=== PATIENT | female | born 1980 | race African-American/Black ===

== ENCOUNTER 2020-10-31 08:57 | Emergency (ER) | payer OTHER, SELFPAY ==
--- NOTE | ~2020-10-31 | US_ITS ---
US breast RT complete DATE: 10/31/2020 09:46 INDICATION: Right breast pain. Possible breast abscess. TECHNIQUE: Real-time imaging of the complete right breast COMPARISON: No comparison views are available here. The patient reports that she had a recent mammogram and breast ultrasound examination on October 08 [address]. FINDINGS: No suspicious mass or shadowing is detected. IMPRESSION: Negative; recommend clinical correlation with prior mammogram and ultrasound report BI-RADS Category 1: Negative Reviewed, dictated and finalized at [facility]. Reviewed, dictated and finalized at [facility]. E DIRECTOR IMPRESSION: Negative; recommend clinical correlation with prior mammogram and u ltrasound report BI-RADS Category 1: Negative
[2020-10-31 09:03] VITALS: BP 123/80; PULSE 86; RESP 18; TEMP 36.2; O2SAT 100
[2020-10-31] MEDS: KETOROLAC 15 MG/ML VIAL (*BKC) IV PUSH (09:31)
[2020-10-31 09:40] LABS: Basophils Percent Auto 0.8 % (0.2-1.2); Eosinophils Absolute Auto 0.1 K/mm3 (0-0.3); Eosinophils Percent Auto 2.6 % (0-4.4); Hematocrit 36.8 % (37.0-47.0); Hemoglobin 12.4 g/dL (12.0-15.0); Immature Granulocyte Absolute 0.01 K/mm3 (0.00-0.031); Immature Granulocyte Percent A 0.2 % (0-0.5); Lymphocytes Absolute Auto 1.55 K/mm3 (0.9-3.2); Lymphocytes Percent Auto 29.2 % (18.3-44.2); Mean Corpuscular HGB Conc 33.7 g/dl (32-36); Mean Corpuscular Hemoglobin 32.5 pg (26-34); Mean Corpuscular Volume 96.3 fl (80-100); Mean Platelet Volume 9.2 fl (7.4-10.4); Monocytes Absolute Auto 0.3 K/mm3 (0.1-0.6); Monocytes Percent Auto 6.2 % (2.6-8.5); Neutrophils Absolute Auto 3.2 K/mm3 (1.3-6.7); Platelet Count Result 338 k/mm3 (150-375); Red Blood Count 3.82 M/mm3 (4.2-5.4); White Blood Count 5.3 K/mm3 (4.5-10.0)
[2020-10-31 09:47] LABS: Add Urine Microscopic? NO; Appearance Urine Clear (Clear); Bilirubin Urine Negative (Negative); Blood Urine Negative (Negative); Color Urine Yellow (Yellow); Glucose Urine UA Negative (Negative); Ketones Urine Negative (Negative); Leukocyte Esterase Ur Negative LEU/UL (Negative); Nitrate Urine Negative (Negative); Protein Urine Negative (Negative); RBC Urine 0-2 /hpf (0-2); Specific Grav Ur 1.018 (1.001-1.035); Squamous Epithelial Cell Urine Many /hpf (Few); Urobilinogen Urine Negative mg/dL (<2.0); WBC Urine 0-3 /hpf
[2020-10-31 09:52] LABS: Alanine Aminotransferase 13 U/L (4-35); Alkaline Phosphatase 66 U/L (38-126); Anion Gap 6 mmol/L (8-16); Aspartate Amino Transferase 19 U/L (14-36); Bilirubin,Total 0.5 mg/dL (0.2-1.3); Blood Urea Nitrogen 14 mg/dL (7-17); Calcium 9.1 mg/dL (8.4-10.2); Carbon Dioxide 27 mmol/L (22-30); Chloride 104 mmol/L (98-107); Estimated CRCL calculation 74 ml/min; Estimated Glomerular Filt Rate > 60; Glucose 97 mg/dL (65-105); Potassium 3.9 mmol/L (3.4-5.0); Sodium 137 mmol/L (137-145)
--- NOTE | 2020-10-31 09:55 | ED.GENADULT ---
HPI - General Adult General Chief complaint: Unspecified Stated complaint: breast abcesses Time Seen by Provider: 10/31/20 09:07 Source: patient Mode of arrival: ambulatory Limitations: no limitations History of Present Illness HPI narrative: Patient presents with chief complaint of right there is pain that she has been experiencing since August. Patient states she has been on Cipro and Bactrim without resolution of her discomfort. Patient states she has a history of inflammatory breast cancer so in October 08 her primary care had her do a mammogram and ultrasound at [facility]. Patient reports she was told that she has a an infected bill. Patient states that she is able to express yellow drainage from her breast and was told that it was staph but it has not stopped even after finishing a course of Bactrim. Patient states that she has not lactated in 19 years. Patient reports diffuse discomfort to the breast especially the inferior and lateral aspect. She denies fever, chills, nausea, vomiting. Patient states that her primary care told her that she was referred to a breast specialist, however she continues to call and has not yet been able to obtain an appointment over this past month. Patient states she really wants to have this issue addressed so she came to the emergency department. Related Data Allergies Allergy/AdvReac Type Severity Reaction Status Date / Time ciprofloxacin [From Cipro] AdvReac Rash Verified 10/31/20 09:07 Review of Systems Review of Systems: Narrative: CONSTITUTIONAL: Denies fever, chills, or sweats. EYES: Denies visual changes, redness, or discharge. ENT: Denies rhinorrhea, congestion, sore throat, or otalgia. CARDIOVASCULAR: Denies chest pain, palpitations, or edema. RESPIRATORY: Denies cough or dyspnea. GASTROINTESTINAL: Denies abdominal pain, nausea, vomiting, or diarrhea. GENITOURINARY: Denies dysuria or hematuria. SKIN: Reports breast pain and drainage denies rash or itching. MUSCULOSKELETAL: Denies back pain, joint pain, or myalgia. NEUROLOGIC: Denies headache, numbness, dizziness, or weakness. PSYCHIATRIC: Denies anxiety or depression. Exam Narrative: Exam Narrative: GENERAL: Well-appearing, well-nourished, and in no acute distress. HEAD: Normocephalic, atraumatic. EYES: PERRLA and EOMI. NECK: Supple. No adenopathy or masses. CHEST: Old scar noted to medial chest wall. there is tenderness diffusely to the inferior and lateral aspect of the breast. It is not erythematous nor is coloration abnormal. No induration or abscess palpable. Symmetrical with the left breast. Lymphadenopathy not appreciated in the right axilla. Yellow serous like fluid expressible from the nipple. Clear to auscultation. No respiratory distress. No wheezes rales or rhonchi. HEART: Regular rate and rhythm. EXTREMITIES: Normal range of motion. No edema. SKIN: Warm, dry, no rash. NEURO: No focal deficits. Alert and oriented x3. PSYCH: Normal mood and affect. Course Vital Signs Vital signs: Vital Signs Temperature 97.2 F L 10/31/20 09:03 Pulse Rate 86 10/31/20 09:03 Respiratory Rate 18 10/31/20 09:03 Blood Pressure 123/80 10/31/20 09:03 Pulse Oximetry 100 10/31/20 09:03 Temperature 97.2 F L 10/31/20 09:03 Pulse Rate 86 10/31/20 09:03 Respiratory Rate 18 10/31/20 09:03 Blood Pressure 123/80 10/31/20 09:03 Pulse Oximetry 100 10/31/20 09:03 Medical Decision Making MDM Narrative Medical decision making narrative: Dr Jordan states that it is unnecessary to culture discharge as there are not signs of infection and US is negative. He states restarting abx is not recommended either. He recommends patient follow up with breast specialist, but if she would like she can follow up with him in his office. He states the breast discharge and pain in itself is not a major concern. Differential Diagnosis Differential Diagnosis: mastitis, abscess, breast cancer, glandular issue, g
[2020-10-31 11:26] VITALS: BP 128/75; PULSE 74; RESP 17; O2SAT 99
== END 2020-10-31 11:27 | disposition home or self-care (01) ==
PROVIDERS: Physician Assistant; Emergency Provider Emergency Medicine; PCP Family Medicine
DX: N64.4 Mastodynia (principal)
CPT/HCPCS: 36415; 76641; 80053; 81003; 85025; 96374; 99284; J1885